=== PATIENT | female | born 1990 | race Caucasian/White ===

== ENCOUNTER → 2016-12-23 | Outpatient (CLI) | payer BC, OTHER ==
--- NOTE | 2016-12-23 13:30 | REP ---
OB ULTRASOUND: Real-time sonographic evaluation of gravid uterus performed. There is a single living intrauterine gestation with an estimated gestational age of 19 weeks 6 days and EDC 05/13/2017. Today's measurements indicate appropriate growth. BPD 47 mm = 20 weeks 2 days, 61st percentile HC 175 mm = 20 weeks 0 days, 54th percentile AC 149 mm = 20 weeks 1 day, 56th percentile Femur length 33 mm = 20 weeks 2 days, 60th percentile HC/AC ratio is 1.17, within normal range. Estimated weight 339 grams, 58th percentile. Cervix is closed and measures 4.7 cm in length. heart rate 150 beats per minute. SEEN/GROSSLY UNREMARKABLE Lateral ventricles Yes Posterior fossa Yes Upper lip Yes Four-chamber heart Yes LVOT No RVOT Yes Stomach Yes Cord insertion No Three vessel cord Yes Kidneys Yes Bladder Yes Spine No position breech. Placenta anterior and grade 0 with no previa or abruption. Amniotic fluid within normal limits. Signed by Solomon Schreiber MD 12/23/2016 04:45 P
== END ==
LOC: M SMT 11:43
PROVIDERS: ATTEND Obstetrics & Gynecology
DX: Z34.82 Encounter for supervision of other normal pregnancy, second trimester (principal)

== ENCOUNTER → 2017-02-08 | Outpatient (CLI) | payer OTHER ==
[2017-02-08 18:46] LABS: MEAN CORPUSCULAR HEMOGLOBIN 30.3 pg (27.0-33.0); MEAN CORPUSCULAR VOLUME 94.7 fl (80.0-96.0); RED CELL DISTRIBUTION WIDTH 13.5 % (11.5-14.5); WHITE BLOOD COUNT 10.2 10^3/uL (4.0-10.0)
== END ==
LOC: M SMT 09:06
PROVIDERS: ATTEND Obstetrics & Gynecology
DX: Z34.82 Encounter for supervision of other normal pregnancy, second trimester (principal)

== ENCOUNTER → 2017-02-27 | Outpatient (CLI) | payer OTHER ==
--- NOTE | 2017-02-27 09:41 | REP ---
Obstetric ultrasound for growth: There is a single intrauterine gestation in a vertex presentation. The heart rate is 153 beats per minute. The placenta is anterior. There is no placenta previa. Subjectively the amniotic fluid volume is normal. The amniotic fluid index is 14.4 which is normal for gestational age. Gestational age by the ultrasound today is 30 weeks 5 days with an ROBERTA of 05/03/2017. Gestational age by the first ultrasound is 29 weeks 2 days and by LMP 29 weeks 2 days. weight is 1712 grams (3 pounds, 12 ounces). This is the 87th percentile for 29 weeks 2 days. The umbilical artery Doppler assessment reveals an ST ratio of 2.78 Resistive index of 0.65. Diastolic flow velocity 15.4 cm/sec. These values are normal. anatomy reveals normal cranium, choroid plexus, cavum septum pellucidum, cerebellum/posterior fossa, face, lungs, four-chamber heart, cardiac right and left ventricular outflow tracts, diaphragm, stomach, cord insertion, three-vessel cord, kidneys, bladder and spine. There are no anomalies. Signed by Solomon Gonzalez MD 02/27/2017 09:33 A
== END ==
LOC: M SMT 08:08
PROVIDERS: ATTEND Obstetrics & Gynecology
DX: Z36.2 Encounter for other antenatal screening follow-up (principal)

== ENCOUNTER → 2017-04-11 | Outpatient (CLI) | payer BC, OTHER ==
--- NOTE | 2017-04-12 07:49 | REP ---
OBSTETRICAL ULTRASOUND: CLINICAL: History of antiphospholipid syndrome for growth evaluation and amniotic fluid volume. COMPARISON: 02/27/2017. FINDINGS: Ultrasound examination demonstrates a single live advanced gestation in cephalic presentation. motion was identified by technologist. Placenta is noted anteriorly and grade 1 without evidence for placenta previa or abruption. Amniotic fluid volume is within normal limits. Gestational age by LMP 35 weeks 3 days with estimated date of delivery 05/13/2017. Gestational age by current measurements 35 weeks 2 days with estimated date of delivery 05/14/2017. FHR 141 beats per minute. BPD 8.4 cm 33 weeks 5 days HC 31.4 cm 35 weeks 2 days AC 32.5 cm 36 weeks 3 days FL 7.1 cm 36 weeks 3 days HC/AC ratio 0.97. Estimated weight 2824 grams (60th percentile). TORIE equals 13.6 cm (7.8 - 24.9). Umbilical cord S/d ratio equals 3.59 (2.00 - 3.00). IMPRESSION: Single live advanced gestation in cephalic presentation demonstrating appropriate interval growth. Amniotic fluid index is within normal limits. Umbilical cord S/D ratio minimally elevated. Signed by Kameron Pang MD 04/17/2017 12:03 A
== END ==
LOC: M SMT 14:41
PROVIDERS: ATTEND Obstetrics & Gynecology
DX: O09.292 Supervision of pregnancy with other poor reproductive or obstetric history, second trimester (principal); D68.61 Antiphospholipid syndrome; Z3A.35 35 weeks gestation of pregnancy; O99.112 Other diseases of the blood and blood-forming organs and certain disorders involving the immune mechanism complicating pregnancy, second trimester

== ENCOUNTER 2017-05-04 11:00 | Inpatient (IN) | payer BC, OTHER ==
[2017-05-04] MEDS: LR 1,000 ML IV ×6 (11:35→19:01)
[2017-05-04 11:51] LABS: MEAN CORPUSCULAR HEMOGLOBIN 29.1 pg (27.0-33.0); MEAN CORPUSCULAR HGB CONC 34.2 g/dl (32.0-36.5); MEAN CORPUSCULAR VOLUME 85.1 fl (80.0-96.0); PLATELET COUNT, AUTOMATED 271 10^3/uL (150-450); WHITE BLOOD COUNT 11.3 10^3/uL (4.0-10.0)
[2017-05-04] MEDS: BICITRA 30ML SOLN UDC PO ×2 (17:20)
[2017-05-04] MEDS ORDERED: MORPHINE 10 MG/ML 1ML VIAL (J2270) As Ordered (17:47)
[2017-05-04] MEDS ORDERED: MORPHINE 10 MG/ML 1ML VIAL As Ordered (17:47)
[2017-05-04] MEDS ORDERED: MORPHINE PRES-FREE INJ 10 MG/10 ML VIAL (J2274) As Ordered ×2 (17:52)
[2017-05-04] MEDS ORDERED: NALOXONE INJ 0.4 MG/1 ML VIAL (J2310) IV ×4 (18:11)
[2017-05-04] MEDS ORDERED: NALBUPHINE HCL 10 MG/ML AMP (J2300) IV ×2 (18:11)
[2017-05-04] MEDS ORDERED: ONDANSETRON 4MG/2ML VIAL (J2405) IV ×6 (18:11→19:45)
[2017-05-04] MEDS ORDERED: KETOROLAC 60 MG/2 ML VIAL (J1885) As Ordered ×2 (18:38)
[2017-05-04] MEDS ORDERED: dexameTHASONE 4 MG/ML 1ML VIAL (J1100) As Ordered ×2 (18:38)
[2017-05-04] MEDS ORDERED: ONDANSETRON 4MG/2ML VIAL (J2405) As Ordered ×2 (18:38)
[2017-05-04] MEDS ORDERED: PHENYLephrine HCL 500 MCG/5 ML (100MCG/ML) SYRINGE (J2370) As Ordered ×2 (18:39)
[2017-05-04] MEDS ORDERED: fentaNYL 100 MCG/2 ML INJECTION (J3010) As Ordered ×2 (18:49)
[2017-05-04] MEDS ORDERED: OXYTOCIN INJ 10 UNITS/ML VIAL (J2590) As Ordered ×4 (19:14)
[2017-05-04] MEDS: OXYTOCIN DRIP 30 UNITS in APPROPRIATE DILUENT 1 EA IV (19:15)
[2017-05-04] MEDS ORDERED: PERCOCET 5MG/325MG TAB PO ×4 (19:15)
[2017-05-04] MEDS ORDERED: DOCUSATE SODIUM 100 MG CAP PO ×2 (19:15)
[2017-05-04] MEDS ORDERED: fentaNYL 100 MCG/2 ML INJECTION (J3010) IV ×2 (19:45)
[2017-05-04] MEDS: METOCLOPRAMIDE INJ 10MG/2ML VIAL (J2765) IV ×2 (21:38)
[2017-05-04] MEDS: MEASLES,MUMPS,RUBELLA VACCINE INJ (MMR-II) (90707) SC ×2 (22:01)
[2017-05-04] MEDS: RHOGAM 300 MCG (1500 IU) INJ (J2790) IM ×2 (22:01)
[2017-05-05] MEDS: KETOROLAC 30 MG/ML VIAL (J1885) IV ×4 (00:36→06:28)
[2017-05-05] MEDS: LR 1,000 ML IV ×4 (02:15→11:01)
[2017-05-05] MEDS: METOCLOPRAMIDE INJ 10MG/2ML VIAL (J2765) IV ×2 (06:57)
[2017-05-05] MEDS: PRENATAL VITAMINS CHEWABLE TABLET PO ×2 (08:10)
[2017-05-05 10:17] LABS: HBSAG L&D NEGATIVE (NEGATIVE)
[2017-05-05 11:04] LABS: MEAN CORPUSCULAR HEMOGLOBIN 28.9 pg (27.0-33.0); MEAN CORPUSCULAR HGB CONC 33.7 g/dl (32.0-36.5); MEAN CORPUSCULAR VOLUME 85.6 fl (80.0-96.0); PLATELET COUNT, AUTOMATED 249 10^3/uL (150-450); WHITE BLOOD COUNT 11.3 10^3/uL (4.0-10.0)
[2017-05-05] MEDS: IBUPROFEN 800 MG TAB PO ×4 (14:31→21:59)
[2017-05-06] MEDS: IBUPROFEN 800 MG TAB PO ×4 (07:30→14:49)
[2017-05-06] MEDS: LR 1,000 ML IV ×6 (07:37→09:15)
[2017-05-06] MEDS: PRENATAL VITAMINS CHEWABLE TABLET PO ×2 (08:54)
[2017-05-06] MEDS: INFLUENZA QUADRIVALENT PF VACCINE 0.5ML SYRINGE (90686) IM ×4 (09:47→09:55)
[2017-05-06] MEDS: ADACEL/BOOSTRIX VACCINE (DIPHTH/PERTUSS/ACELL/TETANUS)0.5ML SYR (90715) IM ×4 (09:47→09:56)
[2017-05-06] MEDS: ENOXAPARIN 40 MG/0.4 ML SYRINGE (J1650) SC ×2 (09:53)
== END 2017-05-06 15:25 | disposition home or self-care (01) | DRG 540 ==
LOC: M LDI 11:00 → M OBS 21:31
PROVIDERS: Specialist
PROC: 10D00Z1 Extraction of Products of Conception, Low, Open Approach (ICD-10-PCS; principal; 2017-05-04 18:03)
DX: O41.03X0 Oligohydramnios, third trimester, not applicable or unspecified (principal); Z37.0 Single live birth; Z3A.38 38 weeks gestation of pregnancy

== ENCOUNTER → 2018-01-22 | Outpatient (CLI) | payer OTHER | LOC: M SMT 08:59 | DX: Z36.9 Encounter for antenatal screening, unspecified (principal); Z3A.19 19 weeks gestation of pregnancy | CPT/HCPCS: 76811 ==

== ENCOUNTER → 2018-03-01 | Outpatient (CLI) | payer OTHER | LOC: M LRY 13:49 | DX: Z36.9 Encounter for antenatal screening, unspecified (principal); Z3A.24 24 weeks gestation of pregnancy | CPT/HCPCS: 76816 ==

== ENCOUNTER → 2018-06-05 | Outpatient (REF) | payer OTHER ==
[~2018-06-05] MED LIST: ASPI81CH PO; ASPI81TA85 PO; COLA100C5 PO; HEPA10004; HEPA1000VL IM; LOVE1INJ SC; MOTR200T44 PO; OXYC1TAB23 PO; PERC5TAB12 PO; PRE-TAB3 PO
== END ==
LOC: M LAB REF 17:23
PROVIDERS: ATTEND Obstetrics & Gynecology
DX: O09.293 Supervision of pregnancy with other poor reproductive or obstetric history, third trimester (principal); Z3A.00 Weeks of gestation of pregnancy not specified

== ENCOUNTER 2018-06-12 05:34 | Inpatient (IN) | payer OTHER ==
[~2018-06-12] VITALS: Ht 160 cm; Wt 92.1 kg
[2018-06-12] MEDS ORDERED: BICITRA 30ML SOLN UDC PO ONE (05:45)
[2018-06-12] MEDS ORDERED: LR 800 ML IV ONE (05:45)
[2018-06-12 06:21] LABS: HEMOGLOBIN 11.1 g/dl (12.0-15.5); MEAN CORPUSCULAR HEMOGLOBIN 26.4 pg (27.0-33.0); MEAN CORPUSCULAR HGB CONC 31.7 g/dl (32.0-36.5); MEAN CORPUSCULAR VOLUME 83.3 fl (80.0-96.0); PLATELET COUNT, AUTOMATED 281 10^3/uL (150-450); WHITE BLOOD COUNT 8.4 10^3/uL (4.0-10.0)
[2018-06-12] MEDS ORDERED: LR 1,000 ML IV SCH ×2 (06:45→10:15)
[2018-06-12] MEDS ORDERED: OXYTOCIN INJ 10 UNITS/ML VIAL (J2590) As Ordered ONE ×2 (07:05→08:54)
[2018-06-12] MEDS ORDERED: ONDANSETRON 4MG/2ML VIAL (J2405) As Ordered ONE ×2 (07:07→09:51)
[2018-06-12] MEDS ORDERED: dexameTHASONE 4 MG/ML 1ML VIAL (J1100) As Ordered ONE (07:07)
[2018-06-12] MEDS ORDERED: BUPIVACAINE/DEXTROSE 0.75% 2 ML AMP As Ordered ONE (07:08)
[2018-06-12] MEDS ORDERED: MORPHINE PRES-FREE INJ 10 MG/10 ML VIAL (J2274) As Ordered ONE (07:10)
[2018-06-12] MEDS ORDERED: METOCLOPRAMIDE INJ 10MG/2ML VIAL (J2765) IV PRN (07:59)
[2018-06-12] MEDS ORDERED: NALBUPHINE HCL 10 MG/ML AMP (J2300) IV PRN (07:59)
[2018-06-12] MEDS ORDERED: ONDANSETRON 4MG/2ML VIAL (J2405) IV PRN ×3 (07:59→10:15)
[2018-06-12] MEDS ORDERED: NALOXONE INJ 0.4 MG/1 ML VIAL (J2310) IV PRN ×2 (07:59)
[2018-06-12] MEDS ORDERED: diphenhydrAMINE INJ 50MG/ML VIAL (J1200) IV PRN (07:59)
[2018-06-12] MEDS ORDERED: ePHEDrine SULFATE 25 MG/5 ML(5MG/ML) SYRINGE As Ordered ONE (08:09)
[2018-06-12] MEDS ORDERED: ENOXAPARIN 40 MG/0.4 ML SYRINGE (J1650) SC SCH (09:00)
[2018-06-12] MEDS: PRENATAL VITAMINS CHEWABLE TABLET PO SCH (09:00)
[2018-06-12] MEDS ORDERED: RHOGAM 300 MCG (1500 IU) INJ (J2790) IM SCH (09:15)
[2018-06-12] MEDS ORDERED: PROMETHAZINE 25 MG TAB PO PRN (09:15)
[2018-06-12] MEDS ORDERED: OXYTOCIN DRIP 30 UNITS in APPROPRIATE DILUENT 1 EA IV SCH (09:15)
[2018-06-12] MEDS ORDERED: PERCOCET 5MG/325MG TAB PO PRN ×2 (09:15)
[2018-06-12] MEDS ORDERED: MEASLES,MUMPS,RUBELLA VACCINE INJ (MMR-II) (90707) SC SCH (09:15)
--- NOTE | 2018-06-12 09:15 | NUR ---
Operative Note Date of procedure: 06/12/2018 Procedure:, Repeat low-transverse section Anesthesia: Spinal with Duramorph Preoperative diagnosis: 39+ weeks gestation, history of low transverse section 1, antiphospholipid antibody syndrome Postoperative diagnosis: Same as preoperative diagnosis Indication: History of prior low transverse section, 39 completed weeks gestation Primary surgeon: Jacinto Begum D.O., Tracee Espinoza Maintenance Analyst: Arabella Ross CNM (essential role in surgical site exposure and assistance of delivery through hysterotomy) Estimated blood loss:500 ml IV fluids administered: ml crystalloid Drains: Kurtz catheter. Urine output: 50 ml Bourbon data: Apgars 9 and 9. 8lbs 3oz, 3720g. Female. Preoperative/prophylactic antibiotics: Ancef 2 g IV (given within 30 minutes prior to surgical start time). Intraoperative findings: Normal uterus and bilateral adnexa/ovaries Specimen(s): none Procedure: The patient was counseled and consented on the risks, benefits, indications and alternatives of the procedure. Informed consent was obtained and placed in the c anderson. She was taken to the operating room with an IV running. She was placed on the operating table. Spinal anesthesia was administered without any difficulty and found to be adequate. She was placed in the dorsal supine position with a leftward tilt. Sequential compression devices were placed on the lower extremities. A Kurtz catheter was placed under sterile conditions. She was sterilely prepped and draped. A surgical timeout was performed per protocol. Spinal anesthesia was again found to be adequate. Using the 10 blade a Pfannenstiel incision was performed. The 10 blade was used to dissect down to the level of the rectus sheath fascia. The rectus sheath fas cally was incised at the midline, and the fascial incision was extended with Collazo scissors. Michael clamps were used to grasp the superior and inferior aspect of the fascial incision and the rectus muscle bellies were dissected off sharply and bluntly. The midline was identified and the rectus muscle bellies were manually . The peritoneum was identified and clamped with hemostats and elevated. The peritoneum was then incised with Metzenbaum scissors. Entry into the intraperitoneal cavity was achieved. The peritoneal opening was extended with manual stretch . There was good visualization of both the bladder and the lower uterine segment. The bladder retractor was placed. The vesicouterine peritoneum was dissected with Metzenbaum scissors and blunt dissection. Bladder retractor was repositioned. A low transverse uterine incision was made with a new 10 blade. The hysterotomy was extended with manual stretch. The amniotic sac was protruding and then artificially ruptured. Clear amniotic fluid was noted. The baby's head delivered through the hysterotomy with ease. The remainder of the body delivered with ease. The cord was doubly clamped and cut and the baby was handed off to awaiting care. See data above. Cord blood was obtained . The placenta was manually removed and noted to be fully intact. The uterus was exteriorized. The intrauterine cavity was cleared of all clot and debris with a laparotomy sponge. The hysterotomy was closed with 0 Vicryl in running, locked fashion. A second imbricating closure was performed over the initial layer closure using 0 Vicryl. The hysterotomy was noted to be hemostatic. The posterior cul-de-sac was irrigated and cleared of all clot and debris. The uterus was replaced back into the abdomen. The paracolic gutters were cleared of all clot and debris with damp laparotomy sponges. The hysterotomy is reinspected and noted to be hemostatic. Sponge, needle and instrument counts were correct. The peritoneum was closed with 3-0 Vicryl in running fashion. The rectus muscle bellies were reapproximated with 3-0 Vicryl with a series of interrupted sutures. The rectus muscle bellies were noted to be hemostatic. The fascia was closed with 0 Vicryl in running fashion. Sponge, needle and instrument counts were again correct. The subcutaneous layer was irrigated. Small subcutaneous bleeders were cauterized with Bovie. The subcutaneous layer was reapproximated with 3-0 Vicryl in running fashion. The skin was closed with 3-0 Monocryl in subcuticular fashion. A bandage was placed over the closed incision. The final sponge, instrument and needle count was correct. She tolerated the entire procedure very well. She was transferred to the PACU in good and stable condition. Dr. Jacinto Begum D.O., F.Nancy.Tere.Major.G
[2018-06-12] MEDS ORDERED: fentaNYL 100 MCG/2 ML INJECTION (J3010) IV PRN (10:15)
[2018-06-12] MEDS ORDERED: METOCLOPRAMIDE INJ 10MG/2ML VIAL (J2765) As Ordered ONE (10:57)
[2018-06-12] MEDS ORDERED: METOCLOPRAMIDE INJ 10MG/2ML VIAL (J2765) IV ONE (11:00)
[2018-06-12 11:45] VITALS: BP 115/59
[2018-06-12 12:15] VITALS: BP 120/58
[2018-06-12] MEDS: KETOROLAC 30 MG/ML VIAL (J1885) IV SCH ×2 (13:04→17:52)
[2018-06-12 13:15] VITALS: BP 131/78
[2018-06-12 14:20] VITALS: BP 114/72
[2018-06-12] MEDS: LR 1,000 ML IV SCH ×2 (17:15→20:20)
[2018-06-12 18:00] VITALS: BP 122/59
[2018-06-12] MEDS: DOCUSATE SODIUM 100 MG CAP PO SCH (21:08)
[2018-06-12] MEDS: ENOXAPARIN 40 MG/0.4 ML SYRINGE (J1650) SC SCH (21:09)
[2018-06-12 22:00] VITALS: BP 113/58
[2018-06-13] MEDS: IBUPROFEN 800 MG TAB PO SCH ×4 (00:31→23:38)
[2018-06-13] MEDS: LR 1,000 ML IV SCH (00:36)
[2018-06-13 02:00] VITALS: BP 101/53
[2018-06-13 06:00] VITALS: BP 95/54
--- NOTE | 2018-06-13 08:03 | NUR ---
Postoperative Day 1 Status post repeat low transverse section, uncomplicated. Subjective Pain is well controlled. Lochia is decreasing and minimal. Voiding spontaneously. Tolerating a regular diet. Ambulating without any assistance. Denies any subjective fever, chills, nausea, vomiting, headache, visual changes, shortness of breath, chest pain. Breast feeding. Objective Vitals: Normotensive, normal heart rate, afebrile, adequate urine output. Heart: regular, rate, and rhythm. no murmurs/gallops/rubs Lungs: clear to auscultation bilaterally, no wheezes/crackles/rales/ronchi Abd: soft, nontender, nondistended, uterine fundus is 2cm below umbilicus and firm Incision: clean, dry, intact Ext: no significant edema, nontender, negative Dallas's bilaterally. Assessment/Plan: Postoperative day 1 status post repeat low transverse section. Recovering well. Hemodynamically stable, afebrile, good pain control. -Routine care -Discharge to home tomorrow. -Routine infectious, fever, pain, and bleeding precautions reviewed -Incision/wound care precautions reviewed. Lucas Mcgowan.O., F.A.C.O.G.
[2018-06-13] MEDS ORDERED: PERCOCET PO (08:04)
[2018-06-13] MEDS ORDERED: IBUP1TAB7 PO (08:05)
[2018-06-13] MEDS ORDERED: COLA100C5 PO (08:05)
[2018-06-13 08:06] LABS: HEMATOCRIT 28.9 % (36.0-47.0); MEAN CORPUSCULAR HEMOGLOBIN 26.8 pg (27.0-33.0); MEAN CORPUSCULAR HGB CONC 31.1 g/dl (32.0-36.5); PLATELET COUNT, AUTOMATED 260 10^3/uL (150-450); RED BLOOD COUNT 3.36 10^6/uL (4.00-5.40); WHITE BLOOD COUNT 9.3 10^3/uL (4.0-10.0)
[2018-06-13] MEDS: PRENATAL VITAMINS CHEWABLE TABLET PO SCH (08:06)
[2018-06-13] MEDS: DOCUSATE SODIUM 100 MG CAP PO SCH ×2 (08:06→21:32)
[2018-06-13] MEDS ORDERED: ENOXAPARIN 40 MG/0.4 ML SYRINGE (J1650) SC SCH (09:00)
[2018-06-13] MEDS ORDERED: ADACEL/BOOSTRIX VACCINE (DIPHTH/PERTUSS/ACELL/TETANUS)0.5ML SYR (90715) IM ONE (09:00)
[2018-06-13] MEDS ORDERED: INFLUENZA QUADRIVALENT PF VACCINE 0.5ML SYRINGE (90686) IM ONE (09:00)
[2018-06-13 10:00] VITALS: BP 101/57
[2018-06-13 14:00] VITALS: BP 100/56
[2018-06-13] MEDS ORDERED: IBUPROFEN 800 MG TAB PO SCH (14:00)
[2018-06-13 18:00] VITALS: BP 120/63
[2018-06-13] MEDS: ENOXAPARIN 40 MG/0.4 ML SYRINGE (J1650) SC SCH (21:33)
[2018-06-13 22:00] VITALS: BP 94/53
[2018-06-14 06:00] VITALS: BP 107/58
--- NOTE | 2018-06-14 07:05 | DSES ---
DATE OF ADMISSION: 06/12/2018 DATE OF DISCHARGE: DISCHARGE DIAGNOSIS: Repeat section, postoperative day #2, stable condition. SURGEON: Dr. Jacinto Begum WELLNESS COACH: Oliva Ross, certified nurse instrument operator. HISTORY: Kelley is a 27-year-old, 6, para 3-0-3-2 now, who was admitted to labor and delivery for a planned repeat section at 39+ weeks. Her surgery was uncomplicated. She had an estimated blood loss of 500 mL. She delivered a live female weighing 3720 grams, 8 pounds 3 ounces, 9 and 9. There were no surgical complications. Her postoperative course has been uncomplicated. She has been out of bed for self care, care, showering and ambulation. She is tolerating a regular diet and by mouth fluids. Her pain has been well controlled with by mouth pain medications. She does report voiding without difficulty and positive flatus. Breast-feeding has been established. She has no complaints today. OBJECTIVE: Temperature 98.9, pulse 82, respirations 17, blood pressure (BP) is 107/58. She is alert and oriented times three. Appears comfortable. Her breasts are soft, nontender. Abdomen: Fundus firm at umbilicus (U). Incision with dressing applied. There is no drainage observed. The perineum is intact with lochia rubra scant. DISPOSITION: Discharge the patient home today. Prescriptions for Percocet, ibuprofen and Lovenox have been E-prescribed by Dr. Jacinto Begum to her pharmacy. I did review discharge instructions that include breast care, incision care, activity and lifting, pelvic rest, signs and symptoms of infection, and other danger signs which to report to her provider. I did review access to care. She is to follow up at [facility] for a 2-week incision check and an 8-week .
[2018-06-14] MEDS ORDERED: LOVE1INJ SC (07:38)
[2018-06-14] MEDS: PRENATAL VITAMINS CHEWABLE TABLET PO SCH (08:02)
[2018-06-14] MEDS: DOCUSATE SODIUM 100 MG CAP PO SCH (08:02)
[2018-06-14] MEDS: IBUPROFEN 800 MG TAB PO SCH (08:02)
[2018-06-14] MEDS ORDERED: INFLUENZA QUADRIVALENT PF VACCINE 0.5ML SYRINGE (90686) IM ONE (09:00)
== END 2018-06-14 10:05 | disposition home or self-care (01) | DRG 773 ==
LOC: M LDI 05:34 → M OBS 11:45
PROVIDERS: ADMIT Obstetrics & Gynecology; ATTEND Obstetrics & Gynecology
PROC: 10D00Z1 Extraction of Products of Conception, Low, Open Approach (ICD-10-PCS; principal; 2018-06-12 07:30)
DX: O34.211 Maternal care for low transverse scar from previous cesarean delivery (principal); Z37.0 Single live birth; Z3A.39 39 weeks gestation of pregnancy

== ENCOUNTER → 2018-11-06 | Outpatient (REF) | payer OTHER ==
[~2018-11-06] MED LIST changes: -ASPI81CH PO; +ASPI81CH49 PO; +IBUP1TAB7 PO; +PERCOCET PO
== END ==
LOC: M LAB REF 17:27
PROVIDERS: ATTEND Obstetrics & Gynecology
DX: Z12.4 Encounter for screening for malignant neoplasm of cervix (principal)

== ENCOUNTER → 2019-08-28 | Outpatient (REF) | payer OTHER ==
[2019-08-28 17:26] LABS: HEMATOCRIT 38.5 % (36.0-47.0); HEMOGLOBIN 12.8 g/dl (12.0-15.5); MEAN CORPUSCULAR HEMOGLOBIN 28.9 pg (27.0-33.0); MEAN CORPUSCULAR HGB CONC 33.2 g/dl (32.0-36.5); MEAN CORPUSCULAR VOLUME 86.9 fl (80.0-96.0); PLATELET COUNT, AUTOMATED 384 10^3/uL (150-450); RED BLOOD COUNT 4.43 10^6/uL (4.00-5.40); WHITE BLOOD COUNT 10.8 10^3/uL (4.0-10.0)
[2019-08-28 18:38] LABS: HIV 1&2 SCREEN CENTAUR NEGATIVE (NEGATIVE); RUBELLA IgG QUALITATIVE IMMUNE (IMMUNE)
[2019-08-28 19:49] LABS: CHLAMYDIA DNA AMPLIFICATION NEGATIVE (NEGATIVE); GC DNA AMPLIFICATION NEGATIVE (NEGATIVE)
== END ==
LOC: M PLALAB 15:11
PROVIDERS: ATTEND Advanced Practice Midwife
DX: Z34.81 Encounter for supervision of other normal pregnancy, first trimester (principal)